=== PATIENT | female | born 1985 | race Caucasian/White ===

== ENCOUNTER 2020-10-04 02:07 | Outpatient (CLI) | payer OTHER, SELFPAY ==
[2020-10-04 22:41] LABS: SARS-CoV-2 RNA PCR Negative
== END 2020-10-04 02:08 | disposition home or self-care (01) ==
LOC: ANHCOVIDDT 02:07
PROVIDERS: Visit Provider Surgery Plastic and Reconstructive Surgery
DX: Z01.818 Encounter for other preprocedural examination (principal); Z20.828 Contact with and (suspected) exposure to other viral communicable diseases
CPT/HCPCS: 87635; C9803; U0003

== ENCOUNTER 2020-10-04 07:44 | Outpatient (CLI) | payer OTHER, SELFPAY ==
--- NOTE | 2020-10-04 07:47 | ECG_ITS ---
Measurements Intervals [place] Rate: 84 P: 55 WA: 163 QRS: 5 QRSD: 81 T: 28 QT: 361 QTc: 428 Interpretive Statements SINUS RHYTHM DELAYED PRECORDIAL R/S TRANSITION BORDERLINE ECG Electronically Signed On 10-04-2020 8:16:55 [employer] by Nav Werner D.O.
== END 2020-10-04 07:45 | disposition home or self-care (01) ==
LOC: ANHSURGERY 07:47
PROVIDERS: PCP Family Medicine; Visit Provider Surgery Plastic and Reconstructive Surgery
DX: Z01.818 Encounter for other preprocedural examination (principal); L57.4 Cutis laxa senilis; R94.31 Abnormal electrocardiogram [ECG] [EKG]
CPT/HCPCS: 93005

== ENCOUNTER 2020-10-07 00:37 | Day surgery (SDC) | payer OTHER, SELFPAY ==
[2020-09-29 15:41] VITALS: BMI 25.4
--- NOTE | 2020-10-06 14:45 | P.PNAN_ITS ---
Anes - Initial Pre Proc Eval Procedure: Operation Date: 10/07/20 07:30 Proposed Procedures p Bilateral Breast Augmentation - Walter Freeman MD s Bilateral Breast Mastopexy With Galaflex - Walter Freeman MD s Abdominoplasty - Walter Freeman MD Date/Time: 10/06/20 14:45 Surgeon: Walter Freeman MD Pre Op Diagnosis: Skin Laxity Patient Data Age: 35 Gender: F Height: 5 ft Weight: 58.97 kg Allergies Allergy/AdvReac Type Severity Reaction Status Date / Time adhesive Allergy Unknown hives Verified 09/29/20 15:47 latex Allergy Unknown hives Verified 09/29/20 15:47 Home Medications Medication Instructions Recorded Confirmed Type carisoprodol 350 mg tablet 350 mg PO TID PRN #21 tablet 09/22/20 09/22/20 Rx docusate sodium 100 mg capsule 100 mg PO DAILY #14 cap 09/22/20 Rx ondansetron HCl 4 mg tablet 4 mg PO Q8H #28 tablet 09/22/20 Rx oxycodone-acetaminophen 5 mg-325 1 tablet PO Q6H PRN #15 tablet 09/22/20 09/22/20 Rx mg tablet Adults Multivitamin 1 cap PO DAILY 09/29/20 09/29/20 History Calcium + Vitamin D 1 cap PO DAILY 09/29/20 09/29/20 History Patient hx anesthesia problems: none Family hx anesthesia problems: none PMFSH Surgical History Surgical History H/O tubal ligation History of Social History Social History Smoking status: Former smoker Smoking end date: 08/04/20 Alcohol intake: current Living arrangements: with family Gender identity (if verbalized by the patient): Female Spiritual care concerns: No Anes - Eval Final PreProcedure Day of Procedure 10/06/20 14:45 Patient weight: normal Heart: regular rate and rhythm Lungs: clear to auscultation Airway: Mallampati scale class II Neurological: alert and oriented Last oral intake: >/= 8 hours ASA classification: II Emergent: no Anesthetic plan: proceed Anesthesia type and monitoring: general ETT and standard monitoring Informed Consent: The patient's anesthetic plan and its attendant risks and benefits were discussed with the patient/family/POA. Questions were solicited a nd answers provided to the satisfaction of the patient/family/POA.
[2020-10-07] VITALS (18 sets, daily range): BP systolic 109–148; BP diastolic 61–93; PULSE 92–115; RESP 12–20; TEMP 36.1–37.3; O2SAT 91–100
[2020-10-07 06:46] LABS: Urine Cotinine NEGATIVE
[2020-10-07] MEDS: LACTATED RINGERS 1,000 ML 30 ML IV CONT ×2 (06:50→12:40)
[2020-10-07 07:05] LABS: Hematocrit 37.7 % (37.0-47.0); Hemoglobin 12.7 g/dL (12.0-15.0)
--- NOTE | 2020-10-07 07:11 | WPDHPUPDATE1 ---
History and Physical Update Update Date/Time: 10/07/20 07:11 History and Physical has been reviewed, including an updated exam of the patient. There are NO changes in the patient's condition. Risks, benefits, and alternatives have been discussed and questions answered. Patient agrees to proceed with procedure.
[2020-10-07] MEDS: ceFAZolin 2 GM/D5W 50 ML 2 GM/50 ML BAG IVPB (07:35)
[2020-10-07] MEDS: LIDO 1%/EPINEPHRINE 1:100,000 20 ML VIAL 60 ML INFILTRATE (07:59)
--- NOTE | 2020-10-07 08:33 | SUR.OPER ---
Antibiotic Pharmacy Irrigation Bottle/1000ml NS Irrigation/[facility] [id number], Exp [id number]. Breast Implants placed in solution when immediately placed on field.
--- NOTE | 2020-10-07 08:55 | SUR.OPER ---
Bilateral Breast Implants [facility] 375cc [facility] SoftTouch Breast Implant. Right SN [id number], Exp 2025-05-07. Lot [id number] Left SN [id number], Exp 2025-05-07. Lot [id number].
--- NOTE | 2020-10-07 09:08 | SUR.OPER ---
GalaFLEX Scaffold [id number], [id number], Lot [id number], Exp 2023-03-20 Soaked in Antibiotic Solution when placed on field. Placement bilateral breasts.
[2020-10-07] MEDS: ceFAZolin SODIUM 1 GM VIAL IV PUSH (11:35)
--- NOTE | 2020-10-07 12:36 | PM.PROC ---
Procedure Note - Detailed Date of procedure: 10/07/20 Pre-op diagnosis: Skin Laxity Micromastia Breast ptosis Post-op diagnosis: same Procedure performed: 1. Bilateral Augmentation Mastopexy with Galaflex 2. Progressive tension abdominoplasty Description of procedure: She is here today for the above. Previously and again today the risks, benefits, alternatives were discussed in extensive detail. I wanted her to be very realistic about the risks involved as well as expectations. We discussed aftercare and what to monitor for. Made sure answered all of her questions to her satisfaction today and consent was obtained. Marked in the preoperative holding area with their verification. The patient was taken to the operating room placed supine on the operating table. Anesthesia was provided by anesthesiology. A surgical time-out was taken. We cleansed the skin and 1% lidocaine and 0.25% Marcaine with epinephrine was used anesthetize as a field block. She was prepped and draped in a standard sterile fashion. Tegaderm nipple Flores were placed. A 15 blade used to make an incision along the inframammary fold. Dissection continued down until the pectoralis major was identified. The pectoralis major was incised along its inferior border. The pectoralis major was very thin. I created a subpectoral pocket in the appropriate dimensions based on our preoperative planning for the implant. I then copiously irrigated with saline solution and verified a strict hemostasis. Next the use a triple antibiotic and Betadine containing solution to irrigate the pocket. I washed my gloves with the triple antibiotic and Betadine solution. We washed the implant immediately upon opening it with this solution and only opened it when we needed it. I used implant funnel and no-touch technique. The implant was introduced into the pocket using the funnel. Having verified positioning of the implant this was closed using 2-0 Vicryl. I then placed this patient in a sitting position. Marked out the nipple-areolar complex at 38 mm. This was based on preoperative markings intraoperative measurements and observations which were in full agreement. She did have a degree of asymmetry and this was identified preoperatively. We had some correction however she understands she will always have a degree of asymmetry. Ten blade used to make an incision around the areola. I de-epithelialized the superior pedicle bilateral. Resect the central keel. I elevated medial and lateral flaps. I then used gallop flex which was sutured into place along the inferior border of the breast using 2-0 Vicryl. I closed using 2-0 PDS. Around the areola and the vertical incision 3-0 Monocryl followed by 3-0 strata fix along the IMF in a running subcuticular 4-0 Monocryl tissue glue. I proceeded to the abdominoplasty. I placed the patient in a flexed position to verify the upper and lower markings would reach. I then placed her supine. A thorough abdominal examination was completed. Stab incisions were made and used tumescent solution. A 10 blade was used to make the upper incision. I continued dissection down to the level of fascia. Elevated just what was necessary for repair of the diastasis and discontinuous undermining otherwise. I then again flexed the bed to verify the upper skin flap would reach the lower markings without tension. Once verified I placed her supine once again and a 10 blade used to make the lower incision. I elevated up to level the umbilicus and left the umbilicus intact on a well-vascularized stalk. The intervening tissue was removed. A 2 mm blunt cannula and Exparel which was mixed 20 cc in 100 cc for a total volume of 120 cc I injected deep to the fascia bilaterally as well as along the incision lines. I plicated the diastasis recti using 0 PDO stratafix barbed suture. This was in 2 separate layers using 2 separate sutures as well. I repaired around the umbilicus leaving plenty
[2020-10-07] MEDS: LACTATED RINGERS 1,000 ML 125 ML IV CONT (14:35)
[2020-10-07] MEDS: ONDANSETRON INJ 4 MG/2 ML VIAL IV PUSH (14:35)
--- NOTE | 2020-10-07 16:29 | SUR.OPER ---
late entry to pacu in flexed position with pillow under knees sign on bed to keep in this position.
--- NOTE | 2020-10-07 16:57 | ADMGEN ---
1405-This patient, Hermila Mathias, was admitted to OB 2nd Floor Room 285-00. Patient/family oriented to hospital policies and general routines including ID bracelet, bed and alarms, visiting hours, pain management, procedures, bathroom and other care routines, personal items, smoking policy, room service/diet, and visiting hours. Information on how to activate the Rapid Response Team has been discussed. Patient/Family are encouraged to report perceived risks to care and to ask questions if they do not understand what they are told or what they should do.
[2020-10-07] MEDS: carisoprodoL (*CRX) 350 MG TABLET PO ×2 (17:21→23:12)
[2020-10-07] MEDS: DOCUSATE SODIUM 100 MG CAPSULE PO (19:39)
[2020-10-07] MEDS: oxyCODONE/ACETAMINOPHEN (*CRX) 5-325 MG TABLET PO (19:39)
[2020-10-07] MEDS: ENOXAPARIN 40 MG/0.4 ML SYRINGE SUB-Q (19:40)
[2020-10-07] MEDS: IBUPROFEN 600 MG TABLET (23:45)
[2020-10-08] MEDS: oxyCODONE/ACETAMINOPHEN (*CRX) 5-325 MG TABLET PO ×2 (03:15→10:46)
[2020-10-08 05:00] VITALS: BP 115/80; PULSE 104; RESP 16; TEMP 37.2; O2SAT 96
[2020-10-08] MEDS: carisoprodoL (*CRX) 350 MG TABLET PO (05:00)
[2020-10-08] MEDS: ONDANSETRON INJ 4 MG/2 ML VIAL IV PUSH (05:11)
[2020-10-08] MEDS: IBUPROFEN 600 MG TABLET PO (08:14)
[2020-10-08] MEDS: DOCUSATE SODIUM 100 MG CAPSULE PO (08:14)
[2020-10-08 08:30] VITALS: BP 111/72; PULSE 101; RESP 18; TEMP 37.1; O2SAT 93
--- NOTE | 2020-10-08 08:58 | WPDPN ---
Progress Note: A&P Assessment and Plan (1) Micromastia: Code(s): N64.82 - Hypoplasia of breast Status: Acute Assessment and Plan: She is doing very well after bilateral augmentation mastopexy and progressive tension abdominoplasty. Will discharge home. Today we had a lengthy discussion about the care. What to monitor for. Made sure answered all of her questions to her satisfaction today. She has chosen to use early ambulation is DVT prophylaxis after discharge. I will see her back. (2) Breast ptosis: Code(s): N64.81 - Ptosis of breast Status: Acute (3) Skin laxity: Code(s): L57.4 - Cutis laxa senilis Status: Acute Time Spent With Patient Time with patient: 15 - 25 minutes Review of Systems Review of Systems: All systems reviewed & are unremarkable except as noted in HPI and below Exam Narrative: Exam Narrative: Bilateral breasts are healing well. No signs of infection. No hematoma. No seroma. Good color and capillary refill. Abdomen is healing well. There is no signs of infection. No hematoma. No seroma. Good color and capillary refill. No calf tenderness. Negative Homans. Const: General: comfortable, no acute distress, alert and awake; No acute distress Orientation/consciousness: oriented to person HENMT: Head: normal to inspection Ears: external ears normal General nose exam: Normal external nose present Face and sinus: normal facial exam Eyes: General: appearance normal, both eyes and all related structures Periorbital: periorbital findings normal Eyelids: eyelids normal Conjunctivae: conjunctivae normal Neck: Neck: normal visual inspection Chest: Chest palpation & inspection: normal inspection of the chest Resp: Effort & Inspection: normal respiratory effort and able to speak in complete sentences GI: Inspection: normal to inspection Neuro: General: oriented to person Psych: Appearance: grossly normal Mental Status: mental status grossly normal Objective Data Vital Signs Vital Signs: Vital Signs - 24 hr 10/07/20 12:40 10/07/20 12:55 10/07/20 13:10 Temperature 36.1 C L Pulse Rate 92 108 H 108 H Respiratory Rate 12 16 18 Blood Pressure 109/61 129/85 132/89 Pulse Oximetry 97 100 100 10/07/20 13:25 10/07/20 13:40 10/07/20 13:55 Temperature Pulse Rate 115 H 105 H 109 H Respiratory Rate 18 18 18 Blood Pressure 139/93 H 129/92 H 134/91 H Pulse Oximetry 96 92 92 10/07/20 14:10 10/07/20 14:15 10/07/20 14:30 Temperature 36.4 C L Pulse Rate 105 H 106 H 105 H Respiratory Rate 16 16 16 Blood Pressure 127/89 125/89 125/86 Pulse Oximetry 100 94 97 10/07/20 14:45 10/07/20 15:00 10/07/20 15:30 Temperature Pulse Rate 104 H 109 H 109 H Respiratory Rate 16 16 16 Blood Pressure 118/82 123/81 Pulse Oximetry 93 91 93 10/07/20 16:00 10/07/20 17:00 10/07/20 18:00 Temperature Pulse Rate 108 H 104 H 103 H Respiratory Rate Blood Pressure 123/83 123/83 130/89 Pulse Oximetry 92 93 96 10/07/20 19:40 10/07/20 23:00 10/08/20 05:00 Temperature 36.9 C 37.3 C 37.2 C Pulse Rate 108 H 108 H 104 H Respiratory Rate 16 16 16 Blood Pressure 123/85 123/85 115/80 Pulse Oximetry 98 99 96 Intake/Output Intake/Output: Intake & Output 10/05/20 10/06/20 10/07/20 10/08/20 23:59 23:59 23:59 23:59 Intake Total 710 200 Output Total 1280 400 Balance -570 -200 Meds/Results Medications: Active Medications Generic Name Dose Route Start Last Admin Trade Name Freq PRN Reason Stop Dose Admin Carisoprodol 350 mg 10/07/20 18:00 10/08/20 05:00 Carisoprodol (*Crx) 350 Mg Tablet PO 350 mg Q6HR ABDIAS Administration Docusate Sodium 100 mg 10/07/20 21:00 10/08/20 08:14 Docusate Sodium 100 Mg Capsule PO 100 mg Q12HR ABDIAS Administration Enoxaparin Sodium 40 mg 10/07/20 19:00 10/07/20 19:40 Enoxaparin 40 Mg/0.4 Ml Syringe SUB-Q 40 mg Q24H ABDIAS Administration Ibuprofen 600 mg 10/07/20 23:3
--- NOTE | 2020-10-08 09:01 | PM.DS ---
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 Will discharge home. (2) Breast ptosis: Code(s): N64.81 - Ptosis of breast Status: Acute (3) Skin laxity: Code(s): L57.4 - Cutis laxa senilis Status: Acute (4) Current nicotine use: Code(s): Z72.0 - Tobacco use Status: Acute Assessment and Plan: Understands the critical importance of no nicotine use. DS: Summary Hospital Course Hospital Course: She underwent bilateral augmentation mastopexy with progressive tension abdominoplasty. Postoperatively has done well. We kept overnight for pain control. Will discharge home. Time Spent with Patient Time attestation: Total time spent providing and/or coordinating discharge services: 20 Exam Narrative: Exam Narrative: Bilateral breasts are healing well. No signs of infection. No hematoma. No seroma. Good color and capillary refill. Abdomen is healing well. There is no signs of infection. No hematoma. No seroma. Good color and capillary refill. No calf tenderness. Negative Homans. Const: General: comfortable, no acute distress, alert and awake; No acute distress Orientation/consciousness: oriented to person HENMT: Head: normal to inspection Ears: external ears normal General nose exam: Normal external nose present Face and sinus: normal facial exam Eyes: General: appearance normal, both eyes and all related structures Periorbital: periorbital findings normal Eyelids: eyelids normal Conjunctivae: conjunctivae normal Neck: Neck: normal visual inspection Chest: Chest palpation & inspection: normal inspection of the chest Resp: Effort & Inspection: normal respiratory effort and able to speak in complete sentences GI: Inspection: normal to inspection Neuro: General: oriented to person Psych: Appearance: grossly normal Mental Status: mental status grossly normal Discharge Plan Discharge Patient Disposition: Home, Self-Care Discharge Instructions: POST OPERATIVE DISCHARGE INSTRUCTIONS FOR: Breast Augmentation WALTER FREEMAN M.D. [facility] [address] [place] [address] [address] for 24 hours after anesthesia and while you are taking pain medication. Take all prescribed medication as directed Diet as tolerated. Begin gentle shoulder rolls and arm stretches 10 times per hour. No lifting or activity that raises blood pressure for 48 hours. Regular walking / ambulation. No showering until directed to. No lifting over 20 pounds for straining for 6 weeks. Slowly stand up straight as tolerated during the week. No pools or tubs for 2 weeks. Call with any questions or concerns. May shower. Do not take pain medication before showering as the combination of medication and heat may cause you to feel dizzy or pass out. Let soap and water run over your incisions. Do not scrub or directly wash your incision. Replace the surgical bra and wear it 23 hours per day. If you have any questions or concerns, please call the office . If it is after hours you will be directed to the scrap preparation supervisor exchange. Shortness of breath, chest pain, or other medical emergency dial 911 / proceed to the Emergency Room. Patient Instructions: Abdominoplasty (DC), Breast Augmentation (DC) Stand Alone Forms: General Discharge Instructions Follow-up/Referrals: Walter Freeman MD [Physician] - Other (10/12/2020) Discharge Medications: Continued ondansetron HCl [Zofran] 4 mg tablet 4 mg PO Q8H Qty: 28 RF: 0 docusate sodium [Colace] 100 mg capsule 100 mg PO DAILY Qty: 14 RF: 0 carisopro
[2020-10-08] MEDS: ONDANSETRON HCL ODT 4 MG TABLET (11:22)
--- NOTE | 2020-10-08 11:23 | WPDANESPN ---
Anes - Prog Note Post-Op Date/Time: 10/08/20 11:23 Cardiovascular status: normal Respiratory status: normal Airway patency: baseline Mental status: baseline Post-Op hydration status: normal Vital Signs: Last Vital Signs Temp 37.2 C 10/08/20 05:00 Pulse 104 H 10/08/20 05:00 Resp 16 10/08/20 05:00 BP 115/80 10/08/20 05:00 Pulse Ox 96 10/08/20 05:00 Pain Score (VAS): 2/10 I/O: Intake & Output 10/07/20 10/08/20 10/08/20 23:59 07:59 15:59 Intake Total 410 200 Output Total 1200 400 450 Balance -790 -200 -450 Laboratory Tests 10/07/20 06:21 Post-procedural complaints: none Patient Feedback: Patient satisfied with anesthetic care.
== END 2020-10-08 11:40 | disposition home or self-care (01) ==
LOC: ANHSURGERY 12:49 → ANHOB2 14:19
PROVIDERS: Anesthesiology; Visit Provider Surgery Plastic and Reconstructive Surgery
PROC: (CPT 19325; principal; 2020-10-07 07:30)
PROC: (CPT 19316; 2020-10-07 07:30)
PROC: (CPT 19325; 2020-10-07 07:30)
DX: Z41.1 Encounter for cosmetic surgery (principal); N64.82 Hypoplasia of breast; L57.4 Cutis laxa senilis; Z87.891 Personal history of nicotine dependence; N64.81 Ptosis of breast
CPT/HCPCS: 19325; 19316; 15777 ×2; 15830; 15847; 80307; 85014; 85018; 99199; A9270; C9290; J0171; J0690; J1100; J1580; J1650; J1885; J2250; J2405; J2704; J3010; J7120